=== PATIENT | male | born 1940 | race Caucasian/White ===

== ENCOUNTER 2021-06-21 15:23 | Inpatient (IN) ==
[2021-06-21] MEDS ORDERED: ACETAMINOPHEN 325 MG TABLET PO PRN (17:31)
[2021-06-21] MEDS ORDERED: ONDANSETRON 4 MG/2 ML VIAL IV PRN (17:31)
[2021-06-21] MEDS ORDERED: MAGNESIUM HYDROXIDE SUSP 30 ML UDCUP PO PRN (17:33)
[2021-06-21] MEDS ORDERED: cloNIDine 0.1 MG TABLET PO ONE (18:19)
[2021-06-21] MEDS: DEXTROSE 5% NACL 0.45% 1,000 ML IV SCH (18:54)
[2021-06-21] MEDS: ENOXAPARIN 40 MG/0.4 ML SYRINGE SUBCUT SCH (18:55)
[2021-06-21 19:02] LABS: Basophils % 0.3 % (0.0-0.8); Eosinophils # 0.1 10*3/uL (0.0-0.87); Eosinophils % 0.9 % (0.00-10.9); Hematocrit 39.3 VOL% (42.0-52.0); Hemoglobin 12.7 GM/DL (14.0-18.0); Immature Granulocytes % 0.5 %; Immature Granulocytes Absolute 0.03 #; Lymphocytes # 1.5 10*3/uL (1.4-4.0); Mean Corpuscular HGB Conc 32.3 GM/DL (32-36); Mean Corpuscular Volume 92.9 FL (87-102); Mean Platelet Volume 11.2 FL (9.6-12.0); Neutrophils % 67.3 % (38.7-73.9); Platelet Count 108 T/CUMM (130-400); Red Blood Count 4.23 MC/CUMM (3.8-5.5); Red Cell Distribution Width 13.5 % (9.3-17.3); White Blood Count 5.8 T/CUMM (4-12)
[2021-06-21 19:19] LABS: Albumin 3.2 G/DL (3.4-5.0); Bilirubin,Total 0.6 MG/DL (0.20-1.00); Calcium 9.3 MG/DL (8.5-10.1); Osmolality,Calculated 292.8 MOS/KG (273-304); Potassium 3.9 MMOL/L (3.5-5.1); Total Protein 6.7 G/DL (6.4-8.2)
[2021-06-21 19:23] LABS: Platelet Estimate Adequate
[2021-06-21 19:24] LABS: Anisocytosis Slight
[2021-06-21 19:25] LABS: Macrocytosis Slight
[2021-06-21] MEDS ORDERED: SOTALOL 80 MG TABLET PO SCH (21:00)
[2021-06-21] MEDS ORDERED: TAMSULOSIN 0.4 MG CAPSULE PO SCH (21:00)
[2021-06-21] MEDS: DOCUSATE SODIUM 100 MG CAPSULE PO SCH (21:36)
[2021-06-21] MEDS: OMEGA 3 ACID ETHYL ESTERS 1 GM CAPSULE PO SCH (21:36)
[2021-06-21] MEDS: GABAPENTIN 100 MG CAPSULE PO SCH (21:36)
[2021-06-21] MEDS: DUTASTERIDE 0.5 MG CAPSULE PO SCH (22:33)
[2021-06-22] MEDS ORDERED: METOPROLOL TARTRATE 25 MG TABLET PO SCH (01:40)
[2021-06-22] MEDS ORDERED: METOPROLOL SUCCINATE XL 50 MG TABLET PO SCH (02:00)
[2021-06-22 07:07] LABS: Basophils % 0.3 % (0.0-0.8); Eosinophils # 0.1 10*3/uL (0.0-0.87); Eosinophils % 1.1 % (0.00-10.9); Hematocrit 36.6 VOL% (42.0-52.0); Hemoglobin 11.9 GM/DL (14.0-18.0); Immature Granulocytes % 0.5 %; Immature Granulocytes Absolute 0.03 #; Lymphocytes # 1.9 10*3/uL (1.4-4.0); Lymphocytes % 31.5 % (21.2-54.2); Mean Corpuscular HGB Conc 32.5 GM/DL (32-36); Mean Corpuscular Volume 92.2 FL (87-102); Monocytes % 7.2 % (1.7-12.7); Neutrophils % 59.4 % (38.7-73.9); Platelet Count 105 T/CUMM (130-400); Red Blood Count 3.97 MC/CUMM (3.8-5.5); Red Cell Distribution Width 13.6 % (9.3-17.3); White Blood Count 6.1 T/CUMM (4-12)
[2021-06-22 07:30] LABS: Albumin 2.8 G/DL (3.4-5.0); Bilirubin,Total 1.7 MG/DL (0.20-1.00); Calcium 8.7 MG/DL (8.5-10.1); Osmolality,Calculated 290.8 MOS/KG (273-304); Potassium 3.8 MMOL/L (3.5-5.1); Risk Ratio 2.79; VLDL Cholesterol 15.2 MG/DL
[2021-06-22] MEDS: IRON (CARBONYL)/VIT C/B12/FA TABLET PO SCH (10:20)
[2021-06-22] MEDS: ASPIRIN EC 81 MG TABLET PO SCH (10:20)
[2021-06-22] MEDS: DOCUSATE SODIUM 100 MG CAPSULE PO SCH ×2 (10:20→20:31)
[2021-06-22] MEDS: ATORVASTATIN 40 MG TABLET PO SCH (10:20)
[2021-06-22] MEDS: OMEGA 3 ACID ETHYL ESTERS 1 GM CAPSULE PO SCH ×2 (10:21→20:31)
[2021-06-22] MEDS: PANTOPRAZOLE 40 MG TABLET PO SCH (10:21)
[2021-06-22] MEDS: METOPROLOL SUCCINATE XL 50 MG TABLET PO SCH ×2 (10:21→20:30)
[2021-06-22] MEDS: GABAPENTIN 100 MG CAPSULE PO SCH ×2 (10:21→20:30)
[2021-06-22] MEDS: ENOXAPARIN 40 MG/0.4 ML SYRINGE SUBCUT SCH (17:41)
[2021-06-22] MEDS: DUTASTERIDE 0.5 MG CAPSULE PO SCH (20:31)
[2021-06-22] MEDS: DEXTROSE 5% NACL 0.45% 1,000 ML IV SCH (20:47)
[2021-06-23 06:33] LABS: Basophils % 0.3 % (0.0-0.8); Eosinophils # 0.1 10*3/uL (0.0-0.87); Eosinophils % 0.7 % (0.00-10.9); Hematocrit 36.3 VOL% (42.0-52.0); Immature Granulocytes % 0.6 %; Immature Granulocytes Absolute 0.04 #; Lymphocytes # 2.1 10*3/uL (1.4-4.0); Lymphocytes % 30.4 % (21.2-54.2); Mean Corpuscular HGB Conc 33.1 GM/DL (32-36); Mean Corpuscular Volume 91.7 FL (87-102); Mean Platelet Volume 11.9 FL (9.6-12.0); Monocytes % 7.7 % (1.7-12.7); Neutrophils % 60.3 % (38.7-73.9); Platelet Count 108 T/CUMM (130-400); Red Blood Count 3.96 MC/CUMM (3.8-5.5); Red Cell Distribution Width 13.3 % (9.3-17.3); White Blood Count 6.9 T/CUMM (4-12)
[2021-06-23 07:01] LABS: Calcium 8.9 MG/DL (8.5-10.1); Osmolality,Calculated 286.1 MOS/KG (273-304); Potassium 3.6 MMOL/L (3.5-5.1)
[2021-06-23] MEDS ORDERED: APIXABAN 2.5 MG TABLET PO SCH (09:00)
[2021-06-23] MEDS: PANTOPRAZOLE 40 MG TABLET PO SCH (09:45)
[2021-06-23] MEDS: ASPIRIN EC 81 MG TABLET PO SCH (09:45)
[2021-06-23] MEDS: TAMSULOSIN 0.4 MG CAPSULE PO SCH (09:45)
[2021-06-23] MEDS: DOCUSATE SODIUM 100 MG CAPSULE PO SCH ×2 (09:45→20:47)
[2021-06-23] MEDS: ATORVASTATIN 40 MG TABLET PO SCH (09:45)
[2021-06-23] MEDS: METOPROLOL SUCCINATE XL 50 MG TABLET PO SCH ×2 (09:45→20:47)
[2021-06-23] MEDS: OMEGA 3 ACID ETHYL ESTERS 1 GM CAPSULE PO SCH ×2 (09:45→20:47)
[2021-06-23] MEDS: IRON (CARBONYL)/VIT C/B12/FA TABLET PO SCH (09:45)
[2021-06-23] MEDS: GABAPENTIN 100 MG CAPSULE PO SCH ×2 (09:45→20:47)
[2021-06-23] MEDS: DEXTROSE 5% NACL 0.45% 1,000 ML IV SCH (09:48)
[2021-06-23] MEDS ORDERED: DEXAMETHASONE 10 MG/1 ML VIAL IV ONE (15:32)
[2021-06-23] MEDS: DEXAMETHASONE 4 MG/1 ML VIAL IV SCH ×2 (16:05→20:47)
[2021-06-23] MEDS: DUTASTERIDE 0.5 MG CAPSULE PO SCH (20:47)
[2021-06-24] MEDS: DEXTROSE 5% NACL 0.45% 1,000 ML IV SCH (00:53)
[2021-06-24] MEDS: DEXAMETHASONE 4 MG/1 ML VIAL IV SCH ×4 (02:53→20:52)
[2021-06-24 05:51] LABS: Basophils % 0.1 % (0.0-0.8); Hemoglobin 12.1 GM/DL (14.0-18.0); Immature Granulocytes % 0.6 %; Immature Granulocytes Absolute 0.05 #; Lymphocytes # 1.1 10*3/uL (1.4-4.0); Lymphocytes % 12.4 % (21.2-54.2); Mean Corpuscular HGB Conc 32.7 GM/DL (32-36); Mean Corpuscular Volume 92.3 FL (87-102); Mean Platelet Volume 11.8 FL (9.6-12.0); Monocytes % 1.5 % (1.7-12.7); Neutrophils % 85.4 % (38.7-73.9); Platelet Count 115 T/CUMM (130-400); Red Blood Count 4.01 MC/CUMM (3.8-5.5); Red Cell Distribution Width 13.2 % (9.3-17.3); White Blood Count 8.8 T/CUMM (4-12)
[2021-06-24 06:11] LABS: Albumin 2.7 G/DL (3.4-5.0); Bilirubin,Total 0.7 MG/DL (0.20-1.00); Calcium 9.1 MG/DL (8.5-10.1); Osmolality,Calculated 285.5 MOS/KG (273-304); Potassium 3.9 MMOL/L (3.5-5.1); Total Protein 6.1 G/DL (6.4-8.2)
[2021-06-24] MEDS: GABAPENTIN 100 MG CAPSULE PO SCH ×2 (09:54→20:52)
[2021-06-24] MEDS: ATORVASTATIN 40 MG TABLET PO SCH (09:54)
[2021-06-24] MEDS: DOCUSATE SODIUM 100 MG CAPSULE PO SCH ×2 (09:54→20:52)
[2021-06-24] MEDS: IRON (CARBONYL)/VIT C/B12/FA TABLET PO SCH (09:54)
[2021-06-24] MEDS: OMEGA 3 ACID ETHYL ESTERS 1 GM CAPSULE PO SCH ×2 (09:54→20:52)
[2021-06-24] MEDS: PANTOPRAZOLE 40 MG TABLET PO SCH (09:54)
[2021-06-24] MEDS: TAMSULOSIN 0.4 MG CAPSULE PO SCH (09:54)
[2021-06-24] MEDS: METOPROLOL SUCCINATE XL 50 MG TABLET PO SCH ×2 (09:54→20:52)
[2021-06-24] MEDS ORDERED: hydrALAZINE 25 MG TABLET PO PRN (16:53)
[2021-06-24] MEDS: DUTASTERIDE 0.5 MG CAPSULE PO SCH (20:52)
[2021-06-25] MEDS: DEXAMETHASONE 4 MG/1 ML VIAL IV SCH ×4 (03:01→20:58)
[2021-06-25 05:56] LABS: Basophils % 0.1 % (0.0-0.8); Hematocrit 36.9 VOL% (42.0-52.0); Hemoglobin 12.3 GM/DL (14.0-18.0); Immature Granulocytes % 0.7 %; Immature Granulocytes Absolute 0.11 #; Lymphocytes # 1.2 10*3/uL (1.4-4.0); Lymphocytes % 7.8 % (21.2-54.2); Mean Corpuscular HGB Conc 33.3 GM/DL (32-36); Mean Corpuscular Volume 91.1 FL (87-102); Mean Platelet Volume 12.4 FL (9.6-12.0); Monocytes % 3.8 % (1.7-12.7); Neutrophils % 87.6 % (38.7-73.9); Platelet Count 121 T/CUMM (130-400); Red Blood Count 4.05 MC/CUMM (3.8-5.5); Red Cell Distribution Width 13.3 % (9.3-17.3); White Blood Count 14.9 T/CUMM (4-12)
[2021-06-25] MEDS: METOPROLOL SUCCINATE XL 50 MG TABLET PO SCH ×2 (10:05→20:59)
[2021-06-25] MEDS: DOCUSATE SODIUM 100 MG CAPSULE PO SCH ×2 (10:05→20:59)
[2021-06-25] MEDS: OMEGA 3 ACID ETHYL ESTERS 1 GM CAPSULE PO SCH ×2 (10:06→20:59)
[2021-06-25] MEDS: TAMSULOSIN 0.4 MG CAPSULE PO SCH (10:06)
[2021-06-25] MEDS: ATORVASTATIN 40 MG TABLET PO SCH (10:06)
[2021-06-25] MEDS: PANTOPRAZOLE 40 MG TABLET PO SCH (10:06)
[2021-06-25] MEDS: IRON (CARBONYL)/VIT C/B12/FA TABLET PO SCH (10:06)
[2021-06-25] MEDS: GABAPENTIN 100 MG CAPSULE PO SCH ×2 (10:06→20:59)
[2021-06-25] MEDS: DUTASTERIDE 0.5 MG CAPSULE PO SCH (20:59)
[2021-06-26] MEDS: DEXAMETHASONE 4 MG/1 ML VIAL IV SCH ×4 (03:32→21:34)
[2021-06-26 05:22] LABS: Basophils % 0.1 % (0.0-0.8); Hematocrit 37.6 VOL% (42.0-52.0); Hemoglobin 12.4 GM/DL (14.0-18.0); Immature Granulocytes % 1.1 %; Immature Granulocytes Absolute 0.13 #; Lymphocytes % 7.9 % (21.2-54.2); Mean Corpuscular Volume 90.8 FL (87-102); Mean Platelet Volume 12.1 FL (9.6-12.0); Neutrophils % 86.9 % (38.7-73.9); Platelet Count 113 T/CUMM (130-400); Red Blood Count 4.14 MC/CUMM (3.8-5.5); Red Cell Distribution Width 13.4 % (9.3-17.3)
[2021-06-26 05:49] LABS: Calcium 9.1 MG/DL (8.5-10.1); Osmolality,Calculated 304.3 MOS/KG (273-304); Potassium 4.4 MMOL/L (3.5-5.1)
[2021-06-26] MEDS: ATORVASTATIN 40 MG TABLET PO SCH (09:55)
[2021-06-26] MEDS: TAMSULOSIN 0.4 MG CAPSULE PO SCH ×2 (09:55→21:30)
[2021-06-26] MEDS: METOPROLOL SUCCINATE XL 50 MG TABLET PO SCH ×2 (09:55→21:30)
[2021-06-26] MEDS: IRON (CARBONYL)/VIT C/B12/FA TABLET PO SCH (09:55)
[2021-06-26] MEDS: OMEGA 3 ACID ETHYL ESTERS 1 GM CAPSULE PO SCH ×2 (09:56→21:30)
[2021-06-26] MEDS: GABAPENTIN 100 MG CAPSULE PO SCH ×2 (09:56→21:30)
[2021-06-26] MEDS: DOCUSATE SODIUM 100 MG CAPSULE PO SCH ×2 (09:56→21:30)
[2021-06-26] MEDS: PANTOPRAZOLE 40 MG TABLET PO SCH (09:56)
[2021-06-26] MEDS ORDERED: ALBUTEROL/IPRATROPIUM 3 ML NEB RESP TX PRN (12:10)
[2021-06-26] MEDS: DUTASTERIDE 0.5 MG CAPSULE PO SCH (21:30)
[2021-06-27] MEDS: DEXAMETHASONE 4 MG/1 ML VIAL IV SCH ×4 (03:10→21:04)
[2021-06-27 05:07] LABS: Basophils % 0.1 % (0.0-0.8); Hematocrit 36.5 VOL% (42.0-52.0); Hemoglobin 12.1 GM/DL (14.0-18.0); Immature Granulocytes Absolute 0.11 #; Lymphocytes # 0.8 10*3/uL (1.4-4.0); Lymphocytes % 7.7 % (21.2-54.2); Mean Corpuscular HGB Conc 33.2 GM/DL (32-36); Mean Corpuscular Volume 91.9 FL (87-102); Mean Platelet Volume 12.3 FL (9.6-12.0); Monocytes % 4.8 % (1.7-12.7); Neutrophils % 86.4 % (38.7-73.9); Platelet Count 117 T/CUMM (130-400); Red Blood Count 3.97 MC/CUMM (3.8-5.5); Red Cell Distribution Width 13.5 % (9.3-17.3); White Blood Count 10.8 T/CUMM (4-12)
[2021-06-27 05:39] LABS: Albumin 2.3 G/DL (3.4-5.0); Bilirubin,Total 0.4 MG/DL (0.20-1.00); Calcium 9.2 MG/DL (8.5-10.1); Osmolality,Calculated 309.4 MOS/KG (273-304); Potassium 4.6 MMOL/L (3.5-5.1); Total Protein 5.6 G/DL (6.4-8.2)
[2021-06-27] MEDS: ATORVASTATIN 40 MG TABLET PO SCH (08:57)
[2021-06-27] MEDS: OMEGA 3 ACID ETHYL ESTERS 1 GM CAPSULE PO SCH ×2 (08:57→21:03)
[2021-06-27] MEDS: PANTOPRAZOLE 40 MG TABLET PO SCH (08:58)
[2021-06-27] MEDS: GABAPENTIN 100 MG CAPSULE PO SCH ×2 (08:58→21:03)
[2021-06-27] MEDS: METOPROLOL SUCCINATE XL 50 MG TABLET PO SCH ×2 (08:58→21:03)
[2021-06-27] MEDS: TAMSULOSIN 0.4 MG CAPSULE PO SCH ×2 (08:58→21:04)
[2021-06-27] MEDS: DOCUSATE SODIUM 100 MG CAPSULE PO SCH ×2 (08:58→21:03)
[2021-06-27] MEDS: IRON (CARBONYL)/VIT C/B12/FA TABLET PO SCH (08:58)
[2021-06-27] MEDS: DUTASTERIDE 0.5 MG CAPSULE PO SCH (21:03)
[2021-06-28] MEDS: DEXAMETHASONE 4 MG/1 ML VIAL IV SCH (03:50)
[2021-06-28 06:52] LABS: Basophils % 0.2 % (0.0-0.8); Hematocrit 38.5 VOL% (42.0-52.0); Hemoglobin 12.7 GM/DL (14.0-18.0); Immature Granulocytes % 1.8 %; Immature Granulocytes Absolute 0.17 #; Lymphocytes # 0.8 10*3/uL (1.4-4.0); Lymphocytes % 8.4 % (21.2-54.2); Mean Corpuscular Volume 90.8 FL (87-102); Mean Platelet Volume 11.9 FL (9.6-12.0); Monocytes % 6.1 % (1.7-12.7); Neutrophils % 83.5 % (38.7-73.9); Platelet Count 130 T/CUMM (130-400); Red Blood Count 4.24 MC/CUMM (3.8-5.5); Red Cell Distribution Width 13.5 % (9.3-17.3); White Blood Count 9.6 T/CUMM (4-12)
[2021-06-28] MEDS: IRON (CARBONYL)/VIT C/B12/FA TABLET PO SCH (08:44)
[2021-06-28] MEDS: PANTOPRAZOLE 40 MG TABLET PO SCH (08:44)
[2021-06-28] MEDS: METOPROLOL SUCCINATE XL 50 MG TABLET PO SCH (08:44)
[2021-06-28] MEDS: OMEGA 3 ACID ETHYL ESTERS 1 GM CAPSULE PO SCH (08:44)
[2021-06-28] MEDS: GABAPENTIN 100 MG CAPSULE PO SCH (08:44)
[2021-06-28] MEDS: ATORVASTATIN 40 MG TABLET PO SCH (08:44)
[2021-06-28] MEDS: DOCUSATE SODIUM 100 MG CAPSULE PO SCH (08:44)
[2021-06-28] MEDS ORDERED: DEXAMETHASONE 4 MG TABLET PO SCH (09:00)
[2021-06-28] MEDS ORDERED: TAMSULOSIN 0.4 MG CAPSULE PO SCH (09:00)
[2021-06-28 11:44] VITALS: BP 158/84
== END 2021-06-28 11:42 | disposition hospice, home (50) | DRG 54 ==
LOC: N.3E 17:27
PROVIDERS: ADMIT Family Medicine; ATTEND Family Medicine